=== PATIENT | female | born 1960 | race Caucasian/White ===

== ENCOUNTER → 2017-09-03 | Outpatient (CLI) | payer OTHER | LOC: M.RAD 08:11 | DX: Z12.31 Encounter for screening mammogram for malignant neoplasm of breast (principal) ==

== ENCOUNTER 2018-08-18 20:55 | Emergency (ER) | payer OTHER ==
[~2018-08-18] VITALS: Ht 157.5 cm; Wt 95.3 kg
[2018-08-18] MEDS ORDERED: CELEXA40 MG PO (21:02)
[2018-08-18] MEDS ORDERED: CARTIA XT240 M1 PO (21:02)
[2018-08-18] MEDS ORDERED: LIPITOR10 MG PO (21:02)
[2018-08-18 21:19] LABS: ABSOLUTE BASOPHILS 0.1 thou/uL (0.0-0.2); ABSOLUTE EOSINOPHILS 0.2 thou/uL (0.0-0.7); ABSOLUTE LYMPHOCYTES 1.3 thou/uL (0.8-5.3); ABSOLUTE MONOCYTES 0.6 thou/uL (0.0-1.2); ABSOLUTE NEUTROPHILS 4.6 thou/uL (1.6-8.1); BASOPHILS 1.2 %; EOSINOPHILS 2.3 %; HEMATOCRIT 35.6 % (37.0-47.0); HEMOGLOBIN 11.7 gm/dL (12.0-15.0); LYMPHOCYTES 19.1 %; MCH 26.5 pg (26.0-34.0); MCV 80.4 fL (80.0-100.0); MONOCYTES 8.7 %; MPV 7.7 fl. (7.2-11.1); NUCLEATED RBCS 0 /100WBC; PLATELET COUNT* 265 thou/uL (150-400); POLYS 68.7 %; RBC 4.43 mil/uL (4.20-5.00); RDW-CV 14.7 % (10.5-14.5); WBC 6.7 thou/uL (4.0-11.0)
[2018-08-18 21:29] LABS: PROTIME 10.6 Seconds (9.20-11.50)
[2018-08-18 21:38] LABS: ANION GAP 6 mmol/L (7-16); BUN 13 mg/dL (7-18); CALCIUM 8.6 mg/dL (8.5-10.1); CHLORIDE 102 mmol/L (98-107); CO2 31 mmol/L (21-32); CREATININE 1.2 mg/dL (0.6-1.3); GLUCOSE 143 mg/dL (70-99); POTASSIUM 3.4 mmol/L (3.5-5.1); SODIUM 139 mmol/L (136-145); TROPONIN-I LEVEL <0.06 ng/mL (<0.06)
[2018-08-18 21:43] LABS: ALBUMIN 3.6 g/dL (3.4-5.0); ALKALINE PHOSPHATASE 64 U/L (46-116); LIPASE 117 U/L (73-393); NT-PRO BRAIN NAT PEPTIDE 52 pg/mL (<300); SGOT 16 U/L (15-37); SGPT 18 U/L (30-65); TOTAL BILIRUBIN 0.5 mg/dL (<0.1-1.0); TOTAL PROTEIN 7.3 g/dL (6.4-8.2)
[2018-08-18 23:44] LABS: URINE BILIRUBIN NEGATIVE (Negative); URINE BLOOD NEGATIVE (Negative); URINE CLARITY CLEAR; URINE COLOR YELLOW; URINE GLUCOSE-RANDOM NEGATIVE (Negative); URINE KETONES NEGATIVE (Negative); URINE LEUKOCYTES-REFLEX NEGATIVE (Negative); URINE NITRITE-REFLEX NEGATIVE (Negative); URINE PROTEIN NEGATIVE (Negative); URINE UROBILINOGEN 0.2 E.U./dl (0.2-1.0)
[2018-08-19 00:45] VITALS: BP 120/68
--- NOTE | 2018-08-19 16:07 | EKG ---
[place] [address] ELECTROCARDIOGRAM REPORT Name: VIGNESH CARR Room: [facility]#: [id number] Admission: 08/18/18 Attend Phys: Discharge: 08/19/18 Date of : 58 Report #: [id number] THIS REPORT FOR: //name// [facility] ED Test Date: 2018-08-18 Test Time: 20:58:35 Pat Name: VIGNESH CARR Department: Room: Gender: F [employer] Att[employer]: : 1960 Requested By: June Moise Order Number: [id number] MD: Hayder Jain Measurements Intervals [place] Rate: 67 P: 48 MT: 152 QRS: 4 QRSD: 111 T: 53 QT: 449 QTc: 474 Interpretive Statements Sinus rhythm Borderline T abnormalities, anterior leads Baseline wander in lead(s) II,III,aVF,V4 No previous ECG available for comparison Electronically Signed On 08-19-2018 16:06:58 [employer]RAKE [employer] by Hayder Jain [email or web address] <ELECTRONICALLY SIGNED> By: Hayder Jain MD, [facility] 08/19/18 [id number] 57 Hayder Jain MD, FACC /EPI
== END 2018-08-19 00:45 | disposition home or self-care (01) ==
LOC: M.ERS 20:55
PROVIDERS: Emergency Medicine
DX: R55 Syncope and collapse (principal); I10 Essential (primary) hypertension; E78.00 Pure hypercholesterolemia, unspecified